=== PATIENT | male | born 1995 | race African-American/Black ===

== ENCOUNTER 2019-09-11 11:07 | Observation (INO) | payer OTHER, SELFPAY ==
[2019-09-11] VITALS (11 sets, daily range): BP systolic 117–152; BP diastolic 64–82; PULSE 88–105; RESP 15–18; TEMP 36.5–37.2; O2SAT 97–100
--- NOTE | 2019-09-11 11:30 | W.ED.GENAD ---
Discharge Plan Disposition Patient Disposition: [facility] INPATIENT Condition: Stable Discharge Details Chief Complaint: Dizzy/Sync Clinical Impression: Anemia Primary Care Provider: None,None ED Provider: Harinder Johansen Home Meds and New Rx's Prescriptions: No Action Pain Reliever Plus 250-250-65 mg Tablet 2 tab PO DAILY RF: 0 sodium chloride [Saline Nasal] 0.65 % Aerosol,[place] 2 spray INTRANASAL TID RF: 0 Medical Decision Making 23-year-old male who is a prisoner at local correctional facility. States to me that he has intermittent episodes of epistaxis multiple times per week since he was a child. Has been using nasal spray with saline while institutionalized. This morning he says he had a transient right nostril bleed that resolved with pressure. He subsequently went to the bathroom, urinated, and when he bent over to flush and stood back up he became lightheaded. He sank to his bottom and states had a brief near syncope/ syncopal event and struck his head on the wall without a loss of consciousness. He presents with a temp of 36, pulse is slightly elevated at 90-100 at rest, blood pressure 135/71. His exam reveals minimal right nostril anterior venous bleeding. Patient had a screening EKG obtained, was referred for laboratories, chest x-ray, CT scan of the head. I placed lidocaine with epinephrine on a soaked cotton ball in the right nostril. Subsequently a small area of intravenous bleeding was cauterized chemically. The nares were both coated with bacitracin ointment following this intervention. The patient's laboratories reveal an anemia. White count is 6, hemoglobin 7.4, hematocrit 25, platelets 307. MCV 76. Chemistries including troponin are reassuring. Coagulation panel is pending. Consistent with an acute microcytic anemia. Patient denies to me any known family history. I discussed the case with Dr. Lala. I have consented the patient for a transfusion, will admit him for further work-up and observation. ECG Data Attestation: I personally reviewed and interpreted this ECG (s) as follows: Interpretation: Normal sinus rhythm, rate is 92, the QRS is narrow, there is J-point elevation present in the inferior and lateral leads, nonspecific ST segment flattening present in leads I and aVL as well as the precordium. There is no acute ST segment elevation. HPI General Mode of arrival: ambulatory. Date/Time Provider Initiated Documentation: 09/11/19 11:09. Limitations to Documentation: no limitations. Information obtained by: patient. History of Present Illness 23 year old M presents to the emergency department with the chief complaint of Right nostril epistaxis, resolved. Near syncopal event., described as mild, and is localized to the face. Patient reports no radiation. Patient started experiencing this minute(s) and it has been now resolved. No relieving factors improve symptom(s), No exacerbating factors reported . Patient notes denies chest pain, nausea/vomiting and shortness of breath. Patient did receive the following treatments prior to arrival, none Related Data Home Medications Medication Instructions Recorded Confirmed [id number] 2 tab PO DAILY 09/11/19 09/11/19 [Pain Reliever Plus] sodium chloride [Saline Nasal] 2 spray INTRANASAL TID 09/11/19 09/11/19 Allergies Allergy/AdvReac Type Severity Reaction Status Date / Time No Known Allergies Allergy Unverified 09/11/19 11:08 General Stated Complaint: Dizzy/Sync BLANCA: 3 Review of Systems Narrative: No family history of sudden , denies chest pain or shortness of breath. 6 systems reviewed and otherwise negative [facility] Social History Smoking/Tobacco Use Status: Current every day Tobacco Type: cigarettes Alcohol Intake: never Substance use type: marijuana, crack/cocaine and heroin Exam Narrative Exam Narrative: GEN: awake, alert, oriented 3. Pleasant, well groomed, interactive. HEAD: Normocephalic, atraumatic ENT: Mucous membranes moist, oropharynx unremarkable, External ear exam unremarkable. Scant amount of blood present right nare, no ongoing bleeding EYES: PERRL, EOMI NECK: Full ROM, no HAVEN, no menigismus CHEST/RESP: Nontender, clear to auscultation bilateral, no wheeze/rhonchi/rales CARDIOVASCULAR: RRR, no murmur, rub nathan. 2+ Rad pulse bilateral ABDOMEN: Soft, nontender, no mass. +Bowel sounds EXT: Full ROM, no edema, no rash Neuro: Grossly normal neurologic exam, conversant, interactive. Psych: Speech fluent, thoughts congruent, affect normal Course Vital Signs Vital signs: Vital Signs Temperature 36.5 C 09/11/19 11:10 Pulse 100 H 09/11/19 11:10 Respiratory Rate 15 09/11/19 11:10 Blood Pressure 135/71 09/11/19 11:10 Pulse Oximetry 100 09/11/19 11:10 Temperature 36.5 C 09/11/19 11:10 Temperature Source Temporal Artery Scan 09/11/19 11:10 Pulse 100 H 09/11/19 11:10 Respiratory Rate 15 09/11/19 11:10 Respiratory Effort Non-Labored 09/11/19 11:16 Blood Pressure 135/71 09/11/19 11:10 Blood Pressure Position Sitting 09/11/19 11:10 Pulse Oximetry 100 09/11/19 11:10 Oxygen Delivery Method Room Air 09/11/19 11:10 Oxygen Flow Rate 0 09/11/19 11:10 Pain Level 7 09/11/19 11:10
[2019-09-11 11:40] LABS: Abs Immature Grans 0.04 k/cumm (0.0-0.09); Absolute Basophil Count 0.04 k/cumm (0.0-0.2); Absolute Eosinophil Count 0.06 k/cumm (0.0-0.7); Absolute Lymphocyte Count 1.42 k/cumm (1.2-3.4); Absolute Monocyte Count 0.54 k/cumm (0.11-0.7); Absolute Neutrophil Count 4.14 k/cumm (1.2-6.7); Basophils % 0.6; HCT 25.7 % (40.0-50.0); HGB 7.4 g/dL (13.5-17.5); Immature Grans % 0.6; Lymphocytes % 22.8; Mean Corp. HGB Concentration 28.8 g/dL (32.0-36.0); Mean Corpuscular Volume 76.5 fL (80-95); Mean Platelet Volume 8.5 fL (8.0-11.0); Monocytes % 8.7; Neutrophils % 66.3; Platelet Count 307 x1000/uL (130-400); RBC 3.36 m/cumm (4.50-6.00); RBC Distribution Width 17.9 % (11.8-14.1); White Blood Cell Count 6.24 k/cumm (4.4-10.8)
[2019-09-11] MEDS: Silver Nitrate Stick 1 EACH (11:50)
--- NOTE | 2019-09-11 11:51 | DI.CT_ITS ---
EXAM: CT HEAD WO CT HEAD WO CLINICAL HISTORY: Syncope at correctional facility. Syncope at correctional facility TECHNIQUE: Imaging Protocol: Axial computed tomography images with coronal and sagittal reformatted images were created and reviewed COMPARISON: No exams were available for comparison FINDINGS: Ventricles and Extra axial spaces: Normal in size and morphology for the patient's age. Hemorrhage: None. Cerebral parenchyma: Normal. Midline shift: None. Brainstem/Cerebellum: Normal. Calvarium: Normal. Visualized Paranasal sinuses/Mastoids: Clear. Orbits: There deformity of the posteromedial wall of the left orbit consistent with an old healed fra cture. No acute fracture is identified. IMPRESSION: Old left orbital fracture. No acute abnormality.. DATA REPOSITORY: All CT scans at this facility are submitted to the National Radiology Data Registry (NRDR) Dose Index Registry (DIR) with the [employer] ([employer]). RADIATION OPTIMIZATION: All CT scans at this facility use at least one of these dose optimization te chniques: automated exposure control; mA and/or kV adjustment per patient size (includes targeted exa ms where dose is matched to clinical indication); or iterative reconstruction.
[2019-09-11 11:52] LABS: ALT 11 U/L (16-63); AST 15 U/L (15-37); Albumin 3.1 g/dL (3.4-5.0); Alkaline Phosphatase 75 U/L (46-116); Anion Gap 6.4 mmol/L (3-11); Anisocytosis 2+; BUN 17 mg/dL (7-18); Basophilic Stippling Present; Bilirubin, Total 0.5 mg/dL (0.2-1.0); CO2 27.6 mmol/L (21.0-32.0); CREATININE 1.15 mg/dL (0.70-1.30); Calcium 8.3 mg/dL (8.5-10.1); Chloride 110 mmol/L (98-107); Diff Comment RBC Morph Reviewed; Glucose 101 mg/dL (74-106); Hypochromasia 3+; Magnesium 1.7 mg/dL (1.8-2.4); Microcytosis 3+; Poikilocytes 1+; Polychromasia Present; Potassium 4.6 mmol/L (3.5-5.1); Sodium 144 mmol/L (136-145)
--- NOTE | 2019-09-11 11:52 | DI.RAD_ITS ---
EXAM: XR CHEST 2V PA LATERAL CLINICAL HISTORY: syncope TECHNIQUE: 2D digital imaging was performed. COMPARISON: No exams were available for comparison FINDINGS: The cardiac and mediastinal contours have a normal appearance. The lungs are well inflated and clear . No infiltrate, effusion or pneumothorax is seen. No spine or rib fracture is identified. IMPRESSION: Negative chest x-ray.
[2019-09-11 11:53] LABS: Troponin I < 0.05 ng/Ml (<0.06)
[2019-09-11] MEDS: Normal Saline Flush 10 ML SYR IVP ×2 (12:15→16:34)
--- NOTE | 2019-09-11 12:28 | DI.VRAD_ITS ---
PROCEDURE INFORMATION: Exam: CT Head Without Contrast Exam date and time: 09/11/2019 11:47 AM Age: 23 years old Clinical history: Other: Syncope at correctional facility TECHNIQUE: Imaging protocol: Computed tomography of the head without contrast. Radiation optimization: All CT scans at this facility use at least one of these dose optimization techniques: automated exposure control; mA and/or kV adjustment per patient size (includes targeted exams where dose is matched to clinical indication); or iterative reconstruction. COMPARISON: No relevant prior studies available. FINDINGS: Brain: Normal. No hemorrhage. Unremarkable white matter. No mass effect. Ventricles: Incidental note made of persistent cavum septum vergae. Bones/joints: There is deformity of the medial and posterior wall of the left orbit consistent with previous fracture. Sinuses: Visualized sinuses are unremarkable. No fluid levels. Mastoid air cells: Visualized mastoid air cells are well aerated. Soft tissues: Unremarkable. IMPRESSION: No evidence for acute intracranial hemorrhage. COMMENT: Preliminary interpretation is based on receipt of 1024 image(s). A final report will be issued subsequently. Dictated and Authenticated by: Valencia Diaz MD. Ordering:JUNIOR Pizano MD
[2019-09-11 12:38] LABS: INR 1.1 (0.9-1.1); PTT Activated 18.5 sec (21.0-31.4); Prothrombin Time 10.8 sec (9.3-11.0)
--- NOTE | 2019-09-11 13:10 | DI.VRAD_ITS ---
PROCEDURE INFORMATION: Exam: XR Chest, 2 Views Exam date and time: 09/11/2019 11:55 AM Age: 23 years old Clinical history: Other: Syncope TECHNIQUE: Imaging protocol: XR of the chest Views: 2 views. COMPARISON: No relevant prior studies available. FINDINGS: Lungs: Unremarkable. No consolidation. Pleural space: Unremarkable. No pleural effusion. No pneumothorax. Heart/Mediastinum: Unremarkable. No cardiomegaly. Bones/joints: Unremarkable. IMPRESSION: No evidence for acute abnormality in the chest. COMMENT: Preliminary interpretation is based on receipt of 2 image(s). A final report will be issued subsequently. Dictated and Authenticated by: Valencia Diaz MD. Ordering:JUNIOR Pizano MD
--- NOTE | 2019-09-11 14:16 | W.PM.HP.N ---
Date of service: 09/11/19 Time of Service: 14:16 Assessment and Plan Assessment and plan (1) Epistaxis: Start date: 09/11/19 Start time: 14:28 Status: Acute Assessment and plan: Prone to nose bleeds. History since childhood. Right nostril dominant. Bleeding controlled at this time. Dizziness earlier with LOC per patient lasting seconds. Right nostril erythema with bulging turbinates, friable area. Cauterized by ED. Patient does have a line across bridge of nose, indicative of always rubbing, question chronic rhinisitis. Started on zyrtec. Will transfuse 1 unit for hemoglobin 7.4 with symptoms. Recheck H/H in am and obtain Iron studies. (2) Anemia: Start date: 09/11/19 Start time: 14:31 Status: Chronic Assessment and plan: Likely due to epistaxis, however male does put patient at risk for thalessemia and SS disease. Though at this point in age unlikely. Will check iron studies to be sure. Continue to monitor. (3) DVT prophylaxis: Start date: 09/11/19 Start time: 14:32 Status: Acute Assessment and plan: chemical prophylaxis Contraindicated in a 23 y.o male with epistaxis. Above case discussed with Dr. Lala who is in agreement. History of Present Illness History of Present Illness Chief Complaint: Epistaxis, anemia Narrative: 23 y.o relatively healthy male with history of epistaxis since childhood, presents to [facility] ed with c/o nose bleed this am while in correctional facility. Patient states nose bled for a while, he then went to get up and use the bathroom became dizzy and had an episode of LOC. States lasting about a couple of seconds. He denies hitting his head. Labs in the ED significant for hemoglobin 7.4, mag .17, INR 1.1 and PT 10.8. He is admitted to obs for stabilization of hemoglobin. 1 unit PRBC transfusing. Will repeat cbc in am, will also do Iron studies. Patient does endorse nosebleeds since childhood and he does rub nose alot. Will start zyrtec for allergic rhinitis. Denies CP, SOB, N/V/D. Review of Systems All systems reviewed & are unremarkable except as noted in HPI and below PFSH Social History Smoking/Tobacco Use Status: Current every day Tobacco Type: cigarettes Alcohol Intake: never Substance use type: marijuana, crack/cocaine and heroin Meds Home Medications and Allergies Home Medications Medication Instructions Recorded Confirmed Type [id number]-[id number]-skobglng 2 tab PO DAILY 09/11/19 09/11/19 History [Pain Reliever Plus] sodium chloride [Saline Nasal] 2 spray INTRANASAL TID 09/11/19 09/11/19 History Allergies Allergy/AdvReac Type Severity Reaction Status Date / Time No Known Allergies Allergy Unverified 09/11/19 11:08 Exam Const General: cooperative, healthy appearing and no acute distress Orientation: alert, awake and oriented x3 HENMT Head: normal to inspection Ears: hearing grossly normal bilaterally General nose exam: epistaxis (erythema and swollen turbinates, friable nostril) on the left Mouth: oral mucosae normal Eyes Pupils: PERRL EOM: EOM intact bilaterally Neck Neck: normal visual inspection Thyroid: thyroid normal Carotids: normal carotid upstroke Lymphatic: no lymphadenopathy noted and no lymphedema noted Chest Chest: normal inspection of the chest Resp Effort & Inspection: normal respiratory effort Auscultation: clear to auscultation bilaterally Cardio Jugular venous pressure: no JVD Palpation: normal PMI Rate: regular rate Rhythm: regular rhythm Heart Sounds: S1 normal and S2 normal GI Inspection: normal to inspection Palpation: soft and no hepatosplenomegaly Percussion: normal to percussion Auscultation: normal bowel sounds General: No CVA tenderness and No deferred Back/Spine/Pelvis Back: no CVA tenderness Cervical Spine: normal cervical lordosis Thoracic/Lumbar Spine: thoracic and lumbar spine normal to inspection Pelvis: no pain with anterior-posterior compression Skin General skin exam: no rashes or lesions noted Neuro General: alert, awake and oriented x3 Extrem General: normal to inspection, no joint enlargement and no clubbing, cyanosis or edema Psych Mood: congruent mood Affect: normal affect Attitude: cooperative Results Labs Result diagrams: 09/11/19 11:35 09/11/19 11:35 Labs: Laboratory Results - last 24 hr 09/11/19 09/11/19 09/11/19 11:35 11:35 12:15 WBC 6.24 RBC 3.36 L Hgb 7.4 L Hct 25.7 L MCV 76.5 L MCH 22.0 L MCHC 28.8 L RDW 17.9 H Plt Count 307 MPV 8.5 Immature Gran % 0.6 Neutrophils % 66.3 Lymphocytes % 22.8 Monocytes % 8.7 Eosinophils % 1.0 Basophils % 0.6 Absolute Neutrophils 4.14 Absolute Lymphocytes 1.42 Absolute Monocytes 0.54 Absolute Eosinophils 0.06 Absolute Basophils 0.04 Differential Comment Rbc morph reviewed RBC Morphology See below Polychromasia Present Hypochromasia 3+ Poikilocytosis 1+ Basophilic Stippling Present Anisocytosis 2+ Microcytosis 3+ PT 10.8 INR 1.1 APTT 18.5 L Sodium 144 Potassium 4.6 Chloride 110 H Carbon Dioxide 27.6 Anion Gap 6.4 BUN 17 Creatinine 1.15 Estimated GFR/1.73 m2 >= 60.00 Glucose 101 Calcium 8.3 L Magnesium 1.7 L Total Bilirubin 0.5 AST 15 ALT 11 L Alkaline Phosphatase 75 Troponin I < 0.05 Total Protein 6.0 L Albumin 3.1 L Patient ABO/Rh Antibody Screen Crossmatch 09/11/19 12:15 WBC RBC Hgb Hct MCV MCH MCHC RDW Plt Count MPV Immature Gran % Neutrophils % Lymphocytes % Monocytes % Eosinophils % Basophils % Absolute Neutrophils Absolute Lymphocytes Absolute Monocytes Absolute Eosinophils Absolute Basophils Differential Comment RBC Morphology Polychromasia Hypochromasia Poikilocytosis Basophilic Stippling Anisocytosis Microcytosis PT INR APTT Sodium Potassium Chloride Carbon Dioxide Anion Gap BUN Creatinine Estimated GFR/1.73 m2 Glucose Calcium Magnesium Total Bilirubin AST ALT Alkaline Phosphatase Troponin I Total Protein Albumin Patient ABO/Rh O Positive Antibody Screen Negative Crossmatch See Detail Last Vital Signs Temp 37.2 C 09/11/19 14:03 Pulse 96 H 09/11/19 14:03 Resp 18 09/11/19 14:03 BP 152/82 H 09/11/19 14:03 Pulse Ox 100 09/11/19 14:03
[2019-09-11] MEDS: Cetirizine 10 MG TAB PO (14:53)
[2019-09-11] MEDS: Magnesium Oxide 400 MG TAB 800 MG PO (14:53)
[2019-09-12] MEDS: Acetaminophen 325 MG TAB 650 MG PO (07:11)
[2019-09-12 07:18] LABS: HCT 28.2 % (40.0-50.0); HGB 8.5 g/dL (13.5-17.5); Mean Corp. HGB Concentration 30.1 g/dL (32.0-36.0); Mean Corpuscular Hemoglobin 23.2 pg (27.0-33.0); Mean Corpuscular Volume 76.8 fL (80-95); Mean Platelet Volume 9.2 fL (8.0-11.0); Platelet Count 309 x1000/uL (130-400); RBC 3.67 m/cumm (4.50-6.00); RBC Distribution Width 18.2 % (11.8-14.1); White Blood Cell Count 6.94 k/cumm (4.4-10.8)
[2019-09-12 08:01] LABS: Iron 14 ug/dL (65-175); Total Iron Binding Capacity 303 ug/dL (250-450)
[2019-09-12 08:17] LABS: Ferritin 2 ng/mL (26-388); Folate 15.9 ng/mL (8.6-20.0); Magnesium 1.9 mg/dL (1.8-2.4); Vitamin B12 940 pg/mL (193-986)
[2019-09-12 08:23] VITALS: BP 126/78; PULSE 84; RESP 15; TEMP 36.6; O2SAT 100
[2019-09-12] MEDS: Cetirizine 10 MG TAB PO (08:23)
--- NOTE | 2019-09-12 09:43 | DSE_ITS ---
Date of service: 09/12/19 Time of Service: 09:43 DS: Diagnosis Discharge Diagnosis (1) Epistaxis: Start date: 09/12/19 Start time: 09:43 Status: Acute Asessment and Plan: Controlled, no bleeding over night HH improved this am. 8.5/28.2, (2) Anemia: Start date: 09/12/19 Start time: 09:44 Status: Chronic Asessment and Plan: Iron studies revealing CARMEN. Started on Iron BID, follow Iron rich diet. (3) DVT prophylaxis: Status: Acute Discharge Plan Disposition Patient Disposition: OTHER Condition: Stable Discharge Details Chief Complaint: Dizzy/Sync Clinical Impression: Anemia Reason For Visit: ANEMIA Admit Date/Time: 09/11/19 12:30 Admit Provider: Andrea Lala Attending Provider: Andrea Lala Primary Care Provider: None,None ED Provider: Harinder Johansen Hospital Course Hospital Course: 23 y.o male with PMH epistaxis admitted to [facility] for anemia following nosebleed with dizziness and LOC. Hemoglobin on admission 7.4 with symptoms, CT head negative in ED. Patient was given 1 unit red blood cell without reaction and repeat hemoglobin this am 8.5. Iron studies revealing CARMEN. Patient feels better and is being transferred back to correctional facility. He will be started on ferrous sulfate BID. Recommend Iron rich diet and repeat HH in two days. He denies CP, SOB, N/V/d Home Meds and New Rx's Prescriptions: New cetirizine 10 mg Tablet 10 mg PO DAILY Qty: 30 RF: 0 ferrous sulfate 325 mg (65 mg iron) tablet 325 mg PO BID Qty: 60 RF: 0 Continued Pain Reliever Plus 250-250-65 mg Tablet 2 tab PO DAILY RF: 0 sodium chloride [Saline Nasal] 0.65 % Aerosol,[place] 2 spray INTRANASAL TID RF: 0 Discharge Instructions Instructions: Nosebleed (GEN), Iron Rich Diet (DC), Iron Deficiency Anemia (DC), Allergic Rhinitis (DC) Additional Instructions: Take Iron pills daily, you have Iron deficient anemia. Eat a diet rich in Iron Repeat Hemoglobin and Hematacrit in 2 days Take a cetirizine daily Follow up if you are lightheaded, dizzy, have uncontrolled bleeding Activity:: Activity as Tolerated Equipment/Supplies:: No Equipment Needed Diet:: As Tolerated Discharge Orders Discharge Orders: Discharge Order (Routine); Ordered 09/12/19 Ordered By: Ledy Tadeo DS: Summary Status at Discharge Functional status at discharge: independent ambulation Overall status at discharge: patient is back to baseline Mental Status: mental status grossly normal Speech and Movement: speech and movement normal Mood: congruent mood Affect: normal affect Exam Const General: cooperative, healthy appearing and no acute distress Orientation: alert, awake and oriented x3 HENMT Head: normal to inspection Ears: hearing grossly normal bilaterally General nose exam: epistaxis (erythema and swollen turbinates, friable nostril) on the left Mouth: oral mucosae normal Eyes Pupils: PERRL EOM: EOM intact bilaterally Neck Neck: normal visual inspection Thyroid: thyroid normal Carotids: normal carotid upstroke Lymphatic: no lymphadenopathy noted and no lymphedema noted Chest Chest: normal inspection of the chest Resp Effort & Inspection: normal respiratory effort Auscultation: clear to auscultation bilaterally Cardio Jugular venous pressure: no JVD Palpation: normal PMI Rate: regular rate Rhythm: regular rhythm Heart Sounds: S1 normal and S2 normal GI Inspection: normal to inspection Palpation: soft and no hepatosplenomegaly Percussion: normal to percussion Auscultation: normal bowel sounds General: No CVA tenderness and No deferred Back/Spine/Pelvis Back: no CVA tenderness Cervical Spine: normal cervical lordosis Thoracic/Lumbar Spine: thoracic and lumbar spine normal to inspection Pelvis: no pain with anterior-posterior compression Skin General skin exam: no rashes or lesions noted Neuro General: alert, awake and oriented x3 Extrem General: normal to inspection, no joint enlargement and no clubbing, cyanosis or edema Psych Mental Status: mental status grossly normal Speech and Movement: speech and movement normal Mood: congruent mood Affect: normal affect Attitude: cooperative DS: Data Vitals/I&O Vitals and I&O: Vital Signs Temperature 36.6 C 09/12/19 08:23 Temperature Source Tympanic 09/12/19 08:23 Pulse 84 09/12/19 08:23 Pulse Rhythm Regular 09/12/19 08:20 Respiratory Rate 15 09/12/19 08:23 Respiratory Effort Non-Labored 09/12/19 08:20 Respiratory Depth Normal 09/12/19 08:20 Respiratory Pattern Normal 09/12/19 08:20 Blood Pressure 126/78 09/12/19 08:23 Blood Pressure Position Sitting 09/11/19 11:10 Pulse Oximetry 100 09/12/19 08:23 Oxygen Delivery Method Room Air 09/12/19 08:23 Oxygen Flow Rate 0 09/12/19 08:23 Pain Level 5 09/12/19 08:23 Intake & Output 09/11/19 09/11/19 09/12/19 11:59 23:59 11:59 Intake Total 1104 / 1104 620 / 620 Balance 1104 / 1104 620 / 620 Weight 75.7 kg 74.2 kg Intake: Oral 740 / 740 620 / 620 Blood Product 298 / 298 Rbc Leuko Reduced Unit 298 / 298 [id number] Other 66 / 66 Rbc Leuko Reduced Unit 66 / 66 [id number] Other: Urine Color Yellow Urine Appearance Clear Urine Odor Normal Comment urine unseen. pt voiding independently in the bathroom Voiding Methods Toilet Toilet Data Completed and Pending Completed studies during hospitalization [Text1]: Exam(s) PROCEDURE INFORMATION: Exam: CT Head Without Contrast Exam date and time: 09/11/2019 11:47 AM Age: 23 years old Clinical history: Other: Syncope at correctional facility TECHNIQUE: Imaging protocol: Computed tomography of the head without contrast. Radiation optimization: All CT scans at this facility use at least one of these dose optimization techniques: automated exposure control; mA and/or kV adjustment per patient size (includes targeted exams where dose is matched to clinical indication); or iterative reconstruction. COMPARISON: No relevant prior studies available. FINDINGS: Brain: Normal. No hemorrhage. Unremarkable white matter. No mass effect. Ventricles: Incidental note made of persistent cavum septum vergae. Bones/joints: There is deformity of the medial and posterior wall of the left orbit consistent with previous fracture. Sinuses: Visualized sinuses are unremarkable. No fluid levels. Mastoid air cells: Visualized mastoid air cells are well aerated. Soft tissues: Unremarkable. IMPRESSION: No evidence for acute intracranial hemorrhage. COMMENT: Preliminary interpretation is based on receipt of 1024 image(s). A final report will be issued subsequently. Exam(s) PROCEDURE INFORMATION: Exam: XR Chest, 2 Views Exam date and time: 09/11/2019 11:55 AM Age: 23 years old Clinical history: Other: Syncope TECHNIQUE: Imaging protocol: XR of the chest Views: 2 views. COMPARISON: No relevant prior studies available. FINDINGS: Lungs: Unremarkable. No consolidation. Pleural space: Unremarkable. No pleural effusion. No pneumothorax. Heart/Mediastinum: Unremarkable. No cardiomegaly. Bones/joints: Unremarkable. IMPRESSION: No evidence for acute abnormality in the chest. COMMENT: Preliminary interpretation is based on receipt of 2 image(s). A final report will be issued subsequently. Labs on day of discharge: Labs from last 24 hours 09/12/19 09/12/19 09/12/19 06:53 06:53 06:53 WBC 6.94 RBC 3.67 L Hgb 8.5 L Hct 28.2 L MCV 76.8 L MCH 23.2 L MCHC 30.1 L RDW 18.2 H Plt Count 309 MPV 9.2 Immature Gran % Neutrophils % Lymphocytes % Monocytes % Eosinophils % Basophils % Absolute Neutrophils Absolute Lymphocytes Absolute Monocytes Absolute Eosinophils Absolute Basophils Differential Comment RBC Morphology Polychromasia Hypochromasia Poikilocytosis Basophilic Stippling Anisocytosis Microcytosis PT INR APTT Sodium Potassium Chloride Carbon Dioxide Anion Gap BUN Creatinine Estimated GFR/1.73 m2 Glucose Calcium Magnesium 1.9 Iron 14 L TIBC 303 Ferritin 2 L Total Bilirubin AST ALT Alkaline Phosphatase Troponin I Total Protein Albumin Vitamin B12 940 Folate 15.9 Patient ABO/Rh Antibody Screen Crossmatch 09/11/19 09/11/19 09/11/19 12:15 12:15 11:35 WBC 6.24 RBC 3.36 L Hgb 7.4 L Hct 25.7 L MCV 76.5 L MCH 22.0 L MCHC 28.8 L RDW 17.9 H Plt Count 307 MPV 8.5 Immature Gran % 0.6 Neutrophils % 66.3 Lymphocytes % 22.8 Monocytes % 8.7 Eosinophils % 1.0 Basophils % 0.6 Absolute Neutrophils 4.14 Absolute Lymphocytes 1.42 Absolute Monocytes 0.54 Absolute Eosinophils 0.06 Absolute Basophils 0.04 Differential Comment Rbc morph reviewed RBC Morphology See below Polychromasia Present Hypochromasia 3+ Poikilocytosis 1+ Basophilic Stippling Present Anisocytosis 2+ Microcytosis 3+ PT 10.8 INR 1.1 APTT 18.5 L Sodium Potassium Chloride Carbon Dioxide Anion Gap BUN Creatinine Estimated GFR/1.73 m2 Glucose Calcium Magnesium Iron TIBC Ferritin Total Bilirubin AST ALT Alkaline Phosphatase Troponin I Total Protein Albumin Vitamin B12 Folate Patient ABO/Rh O Positive Antibody Screen Negative Crossmatch See Detail 12/14/19 11:35 WBC RBC Hgb Hct MCV MCH MCHC RDW Plt Count MPV Immature Gran % Neutrophils % Lymphocytes % Monocytes % Eosinophils % Basophils % Absolute Neutrophils Absolute Lymphocytes Absolute Monocytes Absolute Eosinophils Absolute Basophils Differential Comment RBC Morphology Polychromasia Hypochromasia Poikilocytosis Basophilic Stippling Anisocytosis Microcytosis PT INR APTT Sodium 144 Potassium 4.6 Chloride 110 H Carbon Dioxide 27.6 Anion Gap 6.4 BUN 17 Creatinine 1.15 Estimated GFR/1.73 m2 >= 60.00 Glucose 101 Calcium 8.3 L Magnesium 1.7 L Iron TIBC Ferritin Total Bilirubin 0.5 AST 15 ALT 11 L Alkaline Phosphatase 75 Troponin I < 0.05 Total Protein 6.0 L Albumin 3.1 L Vitamin B12 Folate Patient ABO/Rh Antibody Screen Crossmatch [facility] Medical History Epistaxis (Acute) Social History Smoking/Tobacco Use Status: Current every day Tobacco Type: cigarettes Alcohol Intake: never Substance use type: marijuana, crack/cocaine and heroin
--- NOTE | 2019-09-12 11:22 | NUR.NOTE ---
Nursing Note: Phone report given to the nurse at the correctional facility. All questions answered
== END 2019-09-12 11:03 | disposition other institution (70) ==
LOC: ER 12:50 → MS 13:36
PROVIDERS: Nurse Practitioner Family; Admitting Provider Family Medicine; Emergency Provider Emergency Medicine; Visit Provider Family Medicine
DX: D50.9 Iron deficiency anemia, unspecified (principal); R04.0 Epistaxis
CPT/HCPCS: 30901; 36415; 36430; 80053; 85027; 86850; 86900; 86901; 86920; 93005; 99223; 99239; 99285; 70450; 71046; 82607; 82728; 82746; 83540; 83550; 83735; 84484; 85025; 85610; 85730; 93010; 99217; 99220; 99284; G0378; P9016

== ENCOUNTER 2019-09-20 22:31 | Emergency (ER) | payer OTHER, SELFPAY ==
[2019-09-20 22:36] VITALS: BP 143/90; PULSE 101; RESP 16; TEMP 36.3; O2SAT 99
--- NOTE | 2019-09-20 22:46 | W.ED.GENAD ---
Discharge Plan Disposition Patient Disposition: HOME Condition: Good Discharge Details Chief Complaint: Epistaxis Clinical Impression: Epistaxis Primary Care Provider: None,None ED Provider: Josef Bruno Home Meds and New Rx's Prescriptions: No Action Pain Reliever Plus 250-250-65 mg Tablet 2 tab PO DAILY RF: 0 sodium chloride [Saline Nasal] 0.65 % Aerosol,[place] 2 spray INTRANASAL TID RF: 0 cetirizine 10 mg Tablet 10 mg PO DAILY Qty: 30 RF: 0 ferrous sulfate 325 mg (65 mg iron) tablet 325 mg PO BID Qty: 60 RF: 0 Discharge Instructions Instructions: Nosebleed (ED) Additional Instructions: Please apply Vaseline to the inside of your nose multiple times throughout the day to keep it moist and prevent repeat bleeding in the future. Please do not pick your nose at any time. If the bleeding does recur please clamp it with the clamps provided. If you notice any worsening of your symptoms, or any new symptoms such as vomiting, diarrhea, fever, chills, shortness of breath, chest pain, numbness, weakness, or fainting , please return immediately to the emergency department for reevaluation. Please follow up with your primary care provider as soon as possible for reassessment and reevaluation. As always, it was a pleasure participating in your medical care today. Medical Decision Making This is a pleasant 23-year-old -[place] male with a past medical history of nosebleeds who presents for evaluation of nosebleed that occurred while at intermediate today. Been present for the last hour. Unresolved with pressure and packing at the present. 10 days ago he was here for notable nosebleed which did require transfusion. Currently the bleeding has resolved after pressure was applied here in the ED. Afrin was administered as precaution. No active bleeding at this time. We will get a screening CBC to make sure his hemoglobin is stable. If he remains without any active bleeding I feel he can be discharged back to intermediate safely. 11:29 PM Patient's bleeding has completely resolved. He has taken the clamp off for quite some time unbeknownst to us and he has had no repeat bleeding. His hemoglobin is 9.1, vital signs stable. Which is a notable improvement from his last visit. At this time I feel he can be safely discharged home. We will send him back to intermediate with more nose clamps. Discussed the importance of moisturizers to the internal aspect of the nose as well as ways to avoid repeat bleeding. I have extensively reviewed the treatment plan and discharge instructions with the patient. I have addressed all patient concerns at this time. The patient was made aware of what symptoms to monitor for that would warrant a return to the emergency department. Discussed the plan with the patient, they demonstrate verbal understanding and agreement with our assessment and plan at this time. HPI General Date/Time Provider Initiated Documentation: 09/20/19 22:35. HPI Narrative: This is a 23-year-old -[place] male no significant past medical history except for notable nosebleed 10 days ago which did require IV blood transfusion. He presents today for repeat nosebleed. He states that roughly 1 to 2 hours prior to arrival he spontaneously again developed bleeding in his right nare. He denies any trauma or digital exploration. He states that he has been having a notable amount of blood since it happened. He was at present when this happened. He was transferred here after it did not resolved with pressure and packing. Related Data Home Medications Medication Instructions Recorded Confirmed Pain Reliever Plus 2 tab PO DAILY 09/11/19 09/20/19 sodium chloride [Saline Nasal] 2 spray INTRANASAL TID 09/11/19 09/20/19 cetirizine 10 mg PO DAILY #30 tab 09/12/19 09/20/19 ferrous sulfate 325 mg PO BID #60 tab 09/12/19 09/20/19 Previous Rx's Medication Instructions Recorded cetirizine 10 mg PO DAILY #30 tab 09/12/19 ferrous sulfate 325 mg PO BID #60 tab 09/12/19 Allergies Allergy/AdvReac Type Severity Reaction Status Date / Time No Known Allergies Allergy Unverified 09/11/19 11:08 General Stated Complaint: Epistaxis BLANCA: 3 Review of Systems All systems reviewed & are unremarkable except as noted in HPI and below [facility] Social History Smoking/Tobacco Use Status: Current every day Tobacco Type: cigarettes Alcohol Intake: never Substance use type: marijuana, crack/cocaine and heroin Additional Social history: unable to assess privately Exam Narrative Exam Narrative: 1.Const: Well-nourished, Well-developed, appearing stated age 2.Eyes: PERRL, no conjunctival injection, and symmetrical lids. 3.ENT: Atraumatic external nose and ears. Moist MM. Neck: Symmetric, trachea midline, No thyromegaly. Left nare is unremarkable with no bleeding. Right nare demonstrates a small amount of dried blood on the lateral aspect of the anterior internal nose. No active bleeding at this time. No large clots. No other abnormalities. No blood in the posterior oropharynx. 4.CVS: +S1/S2, No murmurs or gallops. Peripheral pulses 2+ and equal in all extremities. Brisk capillary refill in all extremities. 5.RESP: Unlabored respiratory effort. Clear to auscultation bilaterally. No wheezes rales or rhonchi 6.GI: Soft, Nontender/Nondistended, No hepatosplenomegaly. No guarding or rebound. 7.MSK: Normocephalic/Atraumatic, Extremities w/o deformity or ttp No cyanosis or clubbing, Normal movement of all extremities 8.Skin: Warm, Dry. No rashes or lesions. 9.Neuro: field artillery cannoneer II-XII grossly intact. Sensation grossly intact, no focal neurologic deficits. 10.Psych: (AAO) x3. Appropriate mood and affect Course Vital Signs Vital signs: Vital Signs Temperature 36.3 C L 09/20/19 22:36 Pulse 101 H 09/20/19 22:36 Respiratory Rate 16 09/20/19 22:36 Blood Pressure 143/90 H 09/20/19 22:36 Pulse Oximetry 99 09/20/19 22:36 Temperature 36.3 C L 09/20/19 22:36 Temperature Source Skin 09/20/19 22:36 Pulse 101 H 09/20/19 22:36 Respiratory Rate 16 09/20/19 22:36 Blood Pressure 143/90 H 09/20/19 22:36 Blood Pressure Position Sitting 09/20/19 22:36 Pulse Oximetry 99 09/20/19 22:36 Oxygen Delivery Method Room Air 09/20/19 22:36 Oxygen Flow Rate 0 09/20/19 22:36 Pain Level 0 09/20/19 22:36
[2019-09-20] MEDS: Oxymetazolone 0.05% SPRAY 15 ML BTL (22:49)
[2019-09-20 23:04] LABS: HGB 9.1 g/dL (13.5-17.5); Mean Corp. HGB Concentration 29.4 g/dL (32.0-36.0); Mean Corpuscular Volume 81.8 fL (80-95); Mean Platelet Volume 8.7 fL (8.0-11.0); Platelet Count 413 x1000/uL (130-400); RBC 3.79 m/cumm (4.50-6.00); RBC Distribution Width 22.4 % (11.8-14.1); White Blood Cell Count 4.97 k/cumm (4.4-10.8)
[2019-09-20 23:45] VITALS: PULSE 90; RESP 16; TEMP 36.3; O2SAT 99
== END 2019-09-20 23:40 | disposition home or self-care (01) ==
PROVIDERS: Emergency Provider Student in an Organized Health Care Education/Training Program
DX: R04.0 Epistaxis (principal)
CPT/HCPCS: 30901; 36415; 85027; 99283